=== PATIENT | female | born 1960 | race Caucasian/White ===

== ENCOUNTER 2019-04-16 08:25 | Outpatient (CLI) | payer OTHER ==
--- NOTE | 2019-04-16 09:02 | MMO ---
Bilateral MAMMO Bilat Screen [facility]. CLINICAL HISTORY: Patient is 58 years old and is seen for screening. The patient has the following family history of breast cancer: maternal aunt. The patient has no personal history of cancer. The patient has a history of left Ultrasound Guided Core Biopsy in 1995 - benign. VIEWS: The views performed were: bilateral craniocaudal with tomosynthesis; bilateral mediolateral oblique with tomosynthesis; and bilateral exaggerated craniocaudal. FILMS COMPARED: The present examination has been compared to prior imaging studies performed at [facility] on 06/22/2008, 05/07/2011, 10/03/2015 and 12/17/2016. MAMMOGRAM FINDINGS: The breasts are heterogeneously dense, which could obscure a lesion on mammography. There are no suspicious masses, suspicious calcifications, or new areas of architectural distortion. IMPRESSION: THERE IS NO MAMMOGRAPHIC EVIDENCE OF MALIGNANCY. A ROUTINE FOLLOW-UP MAMMOGRAM IN 1 YEAR IS RECOMMENDED. THE RESULTS OF THIS EXAM WERE SENT TO THE PATIENT. ACR BI-RADS Category 1 - Negative MAMMOGRAPHY NOTE: 1. A negative mammogram report should not delay a biopsy if a dominant of clinically suspicious mass is present. 2. Approximately 10% to 15% of breast cancers are not detected by mammography. 3. Adenosis and dense breasts may obscure an underlying neoplasm.
== END 2019-04-16 08:26 | disposition home or self-care (01) ==
LOC: BICMAMMO 08:25
PROVIDERS: ATTEND Nurse Practitioner
DX: Z12.31 Encounter for screening mammogram for malignant neoplasm of breast (principal); Z80.3 Family history of malignant neoplasm of breast
CPT/HCPCS: 77063; 77067

== ENCOUNTER 2019-06-01 07:31 | Outpatient (CLI) | payer OTHER ==
--- NOTE | 2019-06-01 10:39 | MRI ---
MRI OF THE CERVICAL SPINE WITHOUT CONTRAST: INDICATION: A 58-year-old female with prominent osteoarthrosis of the cervical spine with prominent osteoarthrosi s of the cervical spine with bilateral upper extremity radiculopathy. The patient is experiencing nu mbness and tingling within both hands and wrists ongoing for 4-5 years but has been worsening. There is no history of trauma to the cervical spine. TECHNIQUE: Multiplanar, multisequence MR images were obtained of the cervical spine without IV contrast. COMPARISON: No comparisons are available. FINDINGS: There is straightening of the cervical lordosis. Visualized aspects of the posterior fossa and bone marrow appear within normal limits. The spinal cord demonstrates a normal signal intensity and calib er. At C2-C3, there is moderate left and mild right facet joint degenerative change, but no appreciable c entral canal or neural foraminal narrowing. At C3-4, there is mild facet joint degenerative change, but no appreciable central canal or neural fo raminal narrowing. At C4-5, there is uncovertebral hypertrophy and facet joint degenerative change inducing mild left ne ural foraminal narrowing. Broad-based disk bulge mildly effaces the subarachnoid space without cord contact. At C5-6, there is uncovertebral hypertrophy with facet joint degenerative change inducing mild left n eural foraminal narrowing. At C6-7, there is a broad-based bulge with uncovertebral hypertrophy and facet joint degenerative yordan nge inducing mild bilateral neural foraminal narrowing and mild ventral spinal canal effacement. At C7-T1, there is no appreciable central canal or neural foraminal narrowing. IMPRESSION: Mild spondylosis of the cervical spine with mild neural foraminal narrowing as above. POS: [facility]
== END 2019-06-01 07:32 | disposition home or self-care (01) ==
LOC: SCSMRI 07:31
PROVIDERS: ATTEND Orthopaedic Surgery Hand Surgery
DX: M47.812 Spondylosis without myelopathy or radiculopathy, cervical region (principal); M48.02 Spinal stenosis, cervical region
CPT/HCPCS: 72141

== ENCOUNTER 2019-12-04 06:31 | Outpatient (CLI) | payer OTHER ==
[2019-12-04 15:53] LABS: #Eosinphils 0.2 thou/uL (0.0-0.7); #Lymphocytes 1.7 thou/uL (1.20-3.40); #Monocytes 0.5 thou/uL (0.11-0.59); #Neutrophils 4.5 thou/uL (1.40-6.50); %Basophils 0.6 % (0.0-1.0); %Eosinophils 2.2 % (0.0-10.0); %Monocytes 7.8 % (0.0-10.0); %Neutrophils 65.4 % (42.0-75.0); Hemoglobin 13.8 g/dL (12.0-16.0); Mean Corpuscular HGB CONC 34.5 g/dL (32.0-36.0); Mean Corpuscular Hemoglobin 28.8 pg (27.0-31.0); Mean Corpuscular Volume 83.4 fL (78.0-98.0); Mean Platelet Volume 8.3 fL (7.4-10.4); Platelet Count 188 thou/uL (130-400); RBC Distribution Width 12.3 % (11.5-14.5); Red Blood Cell (RBC) Count 4.78 mill/uL (4.20-5.40); White Blood Cell (WBC) Count 6.9 thou/uL (4.8-10.8)
== END 2019-12-04 06:32 | disposition home or self-care (01) ==
LOC: LABBT 06:31
PROVIDERS: ATTEND Orthopaedic Surgery Hand Surgery
DX: Z01.818 Encounter for other preprocedural examination (principal)
CPT/HCPCS: 85025

== ENCOUNTER 2019-12-08 07:57 | Day surgery (SDC) | payer OTHER ==
[2019-12-08] MEDS ORDERED: Ondansetron PF 4 MG/2 ML Vial ONE (09:29)
[2019-12-08] MEDS ORDERED: Lidocaine 1% PF 5 ML VIAL ONE (09:29)
[2019-12-08] MEDS ORDERED: Ketorolac Tromethamine 30 MG/ML VIAL ONE (09:29)
[2019-12-08] MEDS ORDERED: ePHEDrine/0.9% NaCl/PF SYRINGE 50 mg/10 ml ONE (09:29)
[2019-12-08] MEDS ORDERED: PROPOFOL 200 MG/20 ML VIAL ONE (09:29)
[2019-12-08] MEDS ORDERED: Clindamycin/D5W 600 mg/50 ml Premix Bag ONE (09:31)
[2019-12-08] MEDS ORDERED: Bupivacaine PF 0.5% 30 ML VIAL ONE (09:39)
[2019-12-08] MEDS ORDERED: Betamet Acet/Betamet Na Ph 30 MG/5 ML VIAL ONE (09:39)
[2019-12-08] MEDS ORDERED: Sodium Chloride 0.9% 10 ML ONE (09:40)
[2019-12-08] MEDS ORDERED: Bacitracin Zinc Ointment 30 gm TUBE ONE (09:40)
[2019-12-08] MEDS ORDERED: Fentanyl 100 MCG/2 ML VIAL ONE (10:12)
--- NOTE | 2019-12-08 15:18 | OP ---
DATE OF PROCEDURE: 12/08/2019 PREOPERATIVE DIAGNOSIS: 1. Left carpal tunnel syndrome. 2. Right carpal tunnel syndrome. POSTOPERATIVE DIAGNOSES: 1. Left carpal tunnel syndrome. 2. Right carpal tunnel syndrome. 3. Findings of hourglass formation of 1.5 cm area with early stippling of both median nerves within the carpal canal. COMPLICATIONS: None. TOURNIQUET TIME: Left 19 minutes and right 14 minutes. INJECTABLE: Yes. The patient had 10 mL of 0.5% Marcaine injected prior to incision on both sides, no epinephrine, around the surgical region and 2.5 mL of Celestone drip technique over the nerve within the carpal canal before closure of wound. INDICATIONS: Bilateral clinical and diagnostic and failed conservative treatment, all pointing to carpal tunnel syndrome. DESCRIPTION OF PROCEDURE: After successful general LMA technique, the limb was prepped and draped. We used a simultaneous prep and drape on both sides with a dual extremity sheath and then we were able to place sterile tourniquet on the left distal, mid, and proximal forearm because IV was there. We then approached the left side 1st, exsanguinated the limb, and inflated the tourniquet to 250 mmHg pressure. We made a 2.5 cm long incision in line with the ring finger and carried through skin and subcutaneous tissue until we identified the transcarpal ligament. We then entered the transcarpal ligament and found the patient had 1.5 cm stippling and hourglass formation in the center of carpal canal. We entered the carpal canal. We released the ligament from midpoint distally and then from the midpoint proximally using combination of Delmar blade and tenotomy scissors. We placed 2.5 mL Celestone drip technique over the nerve, deflated tourniquet, and obtained hemostasis and closed the wound with interrupted 4-0 nylon. After we finished the left side and put a sterile dressing on that site, we turned attention to the right side. We used the same incision and the exact same technique with the exact same findings as the mirror image of the contralateral side, but on the right side, the tourniquet time was only 14 minutes. Wound was also closed here with tourniquet deflated, no evidence of anesthetic or operative complication, interrupted mattress pattern sutures. Bulky dressing was applied here and the patient left the operating room, both sides with pink digits, with no evidence of anesthetic or operative complication. Job ID: [id number]
== END 2019-12-08 13:28 | disposition home or self-care (01) ==
LOC: SDC 07:57
PROVIDERS: ATTEND Orthopaedic Surgery Hand Surgery
PROC: 01N50ZZ Release Median Nerve, Open Approach (ICD-10-PCS; principal; 2019-12-08)
DX: G56.03 Carpal tunnel syndrome, bilateral upper limbs (principal); G56.23 Lesion of ulnar nerve, bilateral upper limbs; M65.4 Radial styloid tenosynovitis [de Quervain]; E03.9 Hypothyroidism, unspecified; E78.5 Hyperlipidemia, unspecified; F41.9 Anxiety disorder, unspecified; F32.9 Major depressive disorder, single episode, unspecified; Z79.82 Long term (current) use of aspirin; Z79.84 Long term (current) use of oral hypoglycemic drugs; Z79.899 Other long term (current) drug therapy; Z88.1 Allergy status to other antibiotic agents
CPT/HCPCS: J0702; J1885; J2001; J2405; J2704; J3010; J3490; S0020

== ENCOUNTER 2020-08-26 12:21 | Outpatient (CLI) | payer OTHER ==
--- NOTE | 2020-08-26 13:41 | RAD ---
LUMBAR SPINE FOUR VIEWS: 08/26/20 HISTORY: Fell in May. Right leg and buttocks pain. There is some mild scoliotic change convexed to the left associated with moderate degenerative disc n arrowing at L2-3. The remainder of the disc levels all appear fairly well preserved. Flexion and exte nsion views show some minimal reduction to the minimal retrolisthesis of L2 on L3 in flexion. IMPRESSION: Arthritic changes of the spine as above. POS: [facility]
--- NOTE | 2020-08-26 14:51 | MRI ---
MRI lumbar spine noncontrast: HISTORY: Right lower extremity paresthesia. COMPARISON: 03/05/2016 FINDINGS: Type II Modic changes at L2-L3. Vertebral body heights are maintained. No lumbar spine fracture. Appr opriate T1 marrow signal intensity of the visualized distal thoracic vertebra, lumbar vertebra and the S1 level. There is T1 marrow signal hypointensity with associated T2 and STIR hyperintensity invo lving the midline and right aspect of the S2 and S3 level and iliac wing. There is mild edema of the overlying soft tissues. Characterization is incomplete. There is appropriate signal intensity of the paraspinal muscles and solid organs. There is a 1.7 cm l eft renal cyst Conus medullaris terminates at the inferior aspect of T12 T12-L1:Adequate disc hydration. No posterior disc abnormality. No significant central canal stenosis or significant neural foraminal narrowing L1-L2:Adequate disc hydration. No posterior disc abnormality. No significant central canal stenosis o r significant neural foraminal narrowing L2-L3:Disc desiccation with moderate loss of disc space height. Broad-based disc bulge abuts the thec al sac. Mild central canal stenosis. Moderate bilateral neural foraminal narrowing L3-L4:Adequate disc hydration. Broad-based disc bulge, ligament flavum thickening and facet hypertrop hy. Moderate central canal stenosis. There is a left extraforaminal annular fissure that abuts the extra foraminal left L3 nerve root. Moderate bilateral neural foraminal narrowing L4-L5:Adequate disc hydration. Broad-based disc bulge, ligament flavum thickening and facet hypertrop hy. Mild stenosis of the thecal sac. Moderate bilateral foraminal narrowing. There is bilateral facet hypertrophy. L5-S1:Adequate disc hydration. No posterior disc abnormalities. No significant central canal stenosis . Patent bilateral neural foramina. There is bilateral facet hypertrophy. IMPRESSION: 1. Multilevel degenerative change lumbar spine as described above 2. Abnormal marrow signal intensity of the sacrum and right iliac wing, incompletely evaluated. Furth er evaluation with a dedicated pelvic MRI, pre and postcontrast is recommended. 3. Results study conveyed to Dr. Thomas Jauregui 08/26/2020 3:47 PM code CR Transcribed Date/Time: 08/26/2020 3:31 PM
== END 2020-08-26 12:22 | disposition home or self-care (01) ==
LOC: TBSIIMAG 12:21
PROVIDERS: ATTEND Surgery
DX: R20.2 Paresthesia of skin (principal); M79.18 Myalgia, other site; M46.96 Unspecified inflammatory spondylopathy, lumbar region; M47.816 Spondylosis without myelopathy or radiculopathy, lumbar region; R93.7 Abnormal findings on diagnostic imaging of other parts of musculoskeletal system
CPT/HCPCS: 72110; 72148

== ENCOUNTER 2020-08-30 08:55 | Outpatient (CLI) | payer OTHER ==
--- NOTE | 2020-08-30 12:24 | MRI ---
MRI OF THE PELVIS WITH AND WITHOUT CONTRAST: INDICATION: History of abnormal lesion involving the pelvis. TECHNIQUE: Multiplanar, multisequence MR images were obtained of the pelvis with and without contrast utilizing 20 cc of MultiHance. No CT or MR comparisons are available of the pelvis. There is a coccyx and sac ral radiograph from 10/03/2015 which was reviewed. Comparisons are made with the most recent lumbar s [facility] MRI dated 08/26/2020. Lumbar spinal radiographs were also reviewed from 08/26/2020. FINDINGS: There is a large T1 hypointense, T2 hyperintense, enhancing soft tissue mass seen involving the right sacral alae as well as the midline lower sacrum most suspicious for metastatic disease. There is an anterior extraosseous soft tissue mass component enveloping the S1 through S5 nerve roots on the rig ht. The mass measures approximately 8.1 x 6.8 cm in greatest mediolateral and craniocaudad dimension s respectively. There is no overt evidence to suggest the presence of a displaced pathologic fractur e. Portions of the extraosseous soft tissue mass does extend into the posterior right SI joint and r ight ilium. There is an enlarged lymph node adjacent to the external iliac vasculature measuring 11.7 cm. The uterus appears to be surgically absent. The left adnexa is likely still in place and has a balwinder l appearance. The right adnexa is also likely in place and has a normal appearance. No inguinal lym phadenopathy is evident. No additional marrow signal abnormality is evident. IMPRESSION: Abnormal signal intensity lesion seen within the right aspect of the sacrum extending to the midline with a large extraosseous component seen both posteriorly and anteriorly along the pelvis. The soft tissue component projecting anteriorly completely envelopes the exiting nerves from the right S1 thro ugh S5 level. There is extraosseous extension into the posterior soft tissues as well as the posteri or aspect of the right SI joint. There is involvement of portions of the right posterior ilium with the extraosseous soft tissue mass. There is no overt evidence to suggest the presence of pathologic fracture. There is an enlarged right external iliac chain lymph node measuring up to 1.8 cm. Differ ential considerations include metastatic disease, lymphoma or myeloma. The lesion would be amenable to percutaneous sampling if clinically indicated. POS: [facility]
[2020-08-30] MEDS ORDERED: Magnevist 469MG/ML 20 ML VIAL ONE (13:47)
== END 2020-08-30 08:56 | disposition home or self-care (01) ==
LOC: MRI 08:55
PROVIDERS: ATTEND Surgery
DX: C41.4 Malignant neoplasm of pelvic bones, sacrum and coccyx (principal); M79.89 Other specified soft tissue disorders; R59.0 Localized enlarged lymph nodes; M89.8X8 Other specified disorders of bone, other site; R93.89 Abnormal findings on diagnostic imaging of other specified body structures
CPT/HCPCS: 72197; A9579

== ENCOUNTER 2020-09-02 00:09 | Emergency (ER) | payer OTHER | END 2020-09-02 03:10 | disposition home or self-care (01) | LOC: ERS 00:09 | DX: M54.5 Low back pain (principal); E11.9 Type 2 diabetes mellitus without complications; E03.9 Hypothyroidism, unspecified; F32.9 Major depressive disorder, single episode, unspecified; Z79.82 Long term (current) use of aspirin; Z79.84 Long term (current) use of oral hypoglycemic drugs; Z79.899 Other long term (current) drug therapy | CPT/HCPCS: 99283 ==